=== PATIENT | male | born 1950 | race Caucasian/White ===

== ENCOUNTER 2016-10-08 17:10 | Emergency (ER) | payer BC, OTHER ==
[~2016-10-08] VITALS: Ht 177.8 cm; Wt 100.0 kg
[2016-10-08 17:15] VITALS: BP 144/84
[2016-10-08] MEDS ORDERED: ALBUTEROL/IPRATROPIUM 2.5MG/0.5MG, 3 ML NPPB ONE (17:30)
[2016-10-08] MEDS ORDERED: PLEASE ENTER HEIGHT AND WEIGHT MC SCH (17:30)
[2016-10-08] MEDS ORDERED: PLEASE ENTER ALLERGIES MC SCH ×2 (17:30)
== END 2016-10-08 18:15 | disposition home or self-care (01) ==
LOC: ED 17:38
DX: Z76.0 Encounter for issue of repeat prescription (principal); J45.31 Mild persistent asthma with (acute) exacerbation; J45.21 Mild intermittent asthma with (acute) exacerbation; I10 Essential (primary) hypertension
CPT/HCPCS: 93005; 94640; 99283; J7620